=== PATIENT | male | born 1950 | race Caucasian/White ===

== ENCOUNTER 2021-06-01 07:35 | Day surgery (SDC) | payer MEDICARE, BC ==
[2021-05-30 10:32] VITALS: BMI 31.4
[~2021-06-01 07:35] MED LIST: LACTATED RINGERS 1,000 ML IV SCH
[2021-06-01 08:17] VITALS: TEMP 97.3
[2021-06-01] MEDS ORDERED: PROPOFOL 10 MG/ML 20 ML VIAL IV ONE (08:24)
[2021-06-01] MEDS ORDERED: LIDOCAINE 1% INJ 10MG/ML (20 ML MDV) ONE (08:24)
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
[2021-06-01 09:50] VITALS: RESP 16
--- NOTE | 2021-06-01 09:50 | P.PCN ---
Date of Procedure: 06/01/21 Preoperative Diagnosis: Screening Postoperative Diagnosis: Cecal polyp Multiple ascending colon polyps Hepatic flexure mass Procedure(s) Performed: Colonoscopy with hot snare polypectomy, hot snare biopsy, tattoo placement Anesthesia: MAC Surgeon: Ely Kaur Pathology: other (Cecal polyp, multiple ascending colon polyps, biopsy of hepatic flexure mass) Condition: stable Disposition: same day Indications for Procedure: 70-year-old male presents today for screening colonoscopy. Risks, benefits and alternatives were provided to the patient. He did provide consent prior to attending the endoscopy suite. Operative Findings: Large pedunculated hepatic flexure mass, multiple polyps of the cecum and ascending colon Description of Procedure: The patient was brought to the endoscopy suite and placed in left lateral decubitus position and adequate sedation was achieved using conscious sedation. A digital rectal exam was performed and mild internal hemorrhoids were palpated. An endoscope was then placed in the rectum and advanced to the cecum as identified by landmarks including the appendiceal orifice and the ileocecal valve. The prep was good. The colonoscope was then slowly withdrawn, examining for any mucosal abnormalities. The cecum, ascending, transverse, descending and sigmoid colon were visualized adequately. Multiple moderate-sized polyps were noted in the cecum and ascending colon. These were removed with hot snare po lypectomy. A large pedunculated mass was noted at the hepatic flexure. Multiple snare biopsies were taken of this mass and it was unresectable under endoscopy. Area around this mass was tattooed. An additional polyp was noted in the sigmoid colon and this was removed with hot snare polypectomy. Sigmoid colon also showed evidence of moderate diverticulosis. Retroflexion was performed in the rectum and internal hemorrhoids were visible. Excess air was removed, the colonoscope withdrawn and the procedure terminated. The patient was then transferred to the recovery unit in stable condition. Repeat colonoscopy should be performed based on surgical planning due to large hepatic flexure mass.
[2021-06-01 10:26] VITALS: BP 114/65; PULSE 65
== END 2021-06-01 11:05 | disposition home or self-care (01) ==
LOC: ORWHC2ENDO 07:35
PROVIDERS: ATTEND Surgery
DX: Z12.11 Encounter for screening for malignant neoplasm of colon (principal); D12.0 Benign neoplasm of cecum; D12.2 Benign neoplasm of ascending colon; D12.3 Benign neoplasm of transverse colon; D12.4 Benign neoplasm of descending colon; D12.5 Benign neoplasm of sigmoid colon; E78.5 Hyperlipidemia, unspecified; I10 Essential (primary) hypertension; H35.30 Unspecified macular degeneration
CPT/HCPCS: 45385; 45381; 88305; J2001; J2704

== ENCOUNTER 2021-08-10 09:30 | Inpatient (IN) | payer MEDICARE, BC ==
[2021-08-27 11:03] VITALS: BMI 31.8
[2021-08-30] MEDS ORDERED: HEPARIN SODIUM,PORCINE/PF 5,000 UNIT/0.5 ML SYRINGE SQ PRN (05:00)
[2021-08-30] MEDS ORDERED: metroNIDAZOLE-NS PMX 500 MG in SALINE 1 100ML.BAG IVPB PRN (05:00)
[2021-08-30] MEDS ORDERED: HYDROmorphone 0.5 MG/0.5 ML SYRINGE IVP PRN (07:40)
[2021-08-30] MEDS ORDERED: DEXAMETHASONE SOD PHOSPHATE 4 MG/ML 1 ML VIAL IV ONE (07:40)
[2021-08-30] MEDS ORDERED: LIDOCAINE 1% (10MG/ML) FOR IV START INTRADERMA PRN (07:40)
[2021-08-30] MEDS ORDERED: ONDANSETRON 4 MG/2 ML VIAL IVP ONE (07:40)
[2021-08-30] MEDS ORDERED: ONDANSETRON 4 MG/2 ML VIAL IVP PRN ×2 (07:40→13:48)
[2021-08-30] MEDS: LACTATED RINGERS 1,000 ML IV SCH (12:45)
[2021-08-30 13:13] LABS: INR 0.9 (<1.2); Partial Thromboplastin Time 23.3 sec (22.0-30.0); Prothrombin Time 10.2 sec (9.0-12.0)
[2021-08-30] MEDS ORDERED: MIDAZOLAM 2 MG/2 ML VIAL IVP ONE (13:28)
[2021-08-30] MEDS ORDERED: fentaNYL (PF) 50 MCG/ML 5 ML AMP IVP ONE (13:28)
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
[2021-08-30] MEDS ORDERED: NALOXONE 0.4 MG/ML 1 ML VIAL IV PRN (13:48)
[2021-08-30] MEDS ORDERED: NALBUPHINE 10 MG/ML (1 ML AMP) IV PRN (13:48)
[2021-08-30] MEDS ORDERED: MORPHINE SULFATE 2 MG/ML SYRINGE IVP PRN (13:48)
[2021-08-30] MEDS ORDERED: SUCCINYLCHOLINE CHLORIDE VIAL 200 MG/10 ML VIAL IV ONE (13:51)
[2021-08-30] MEDS ORDERED: GLYCOPYRROLATE 0.2 MG/ML 2 ML VIAL ONE (13:51)
[2021-08-30] MEDS ORDERED: HEPARIN SODIUM,PORCINE 5,000 UNIT/ML 1 ML VIAL ONE (13:51)
[2021-08-30] MEDS ORDERED: fentaNYL (PF) 50 MCG/ML 2 ML AMP ONE (13:51)
[2021-08-30] MEDS ORDERED: ROCURONIUM 10 MG/ML (5 ML VIAL) IV ONE (13:51)
[2021-08-30] MEDS ORDERED: NEOSTIGMINE 1 MG/ML 10 ML VIAL ONE (13:51)
[2021-08-30] MEDS ORDERED: LIDOCAINE 1% INJ 10MG/ML (20 ML MDV) ONE (13:51)
[2021-08-30] MEDS ORDERED: PROPOFOL 10 MG/ML 20 ML VIAL IV ONE (13:51)
--- NOTE | 2021-08-30 13:56 | P.ANPRN ---
Procedure Note - Anesthesia - Epidural/Spinal Epidural Continuous Time Out Performed: Yes Date of Procedure: 08/30/21 Procedure Start Time: 13:28 Procedure Stop Time: 13:39 Location of Patient: PreOp Indication: Acute Post-Operative Pain, Requested by Surgeon (anne marie) Sedation Type: Sedate with meaningful contact maintained Preparation: Sterile Dressing Number of Attempts: 2 Position: Sitting Catheter Depth at Skin (cm): 13 Catheter: Indwelling Needle Guage: 18 Injectate: Test Dose Lidocaine1.5% w/1:200,000 epi (negative) Blood Aspirated: No Pain Paresthesia on Injection Noted: No Events: Uneventful and Well Tolerated
[2021-08-30] MEDS ORDERED: LACTATED RINGERS 1,000 ML IV ONE ×4 (14:00→17:31)
[2021-08-30] MEDS ORDERED: ROPIVACAINE 250 MG, HYDROMORPHONE (PF) 5 MG in SODIUM CHLORIDE 0.9% 200 ML EPIDURAL PRN (14:05)
[2021-08-30] MEDS ORDERED: BUPIVACAIN-EPI 0.25%-1:200,000 30 ML VIAL SQ ONE ×2 (14:16)
[2021-08-30] MEDS ORDERED: HYDROmorphone 1 MG/ML 1 ML SYRINGE IVP PRN (16:05)
--- NOTE | 2021-08-30 16:21 | P.OP ---
Date of Procedure: 08/30/21 Preoperative Diagnosis: Colon polypoid lesion, low-grade dysplasia Postoperative Diagnosis: Colon polypoid lesion, low-grade dysplasia Procedure(s) Performed: Open right hemicolectomy Anesthesia: MIGUELANGEL Surgeon: Ely Kaur Pathology: other (Right colon) Condition: stable Disposition: floor Indications for Procedure: 70-year-old male recently underwent colonoscopy for screening purposes. On colonoscopy, large polypoid lesion was noted at the hepatic flexure. Multiple snare attempts were attempted and this was partially removed piecemeal. Pathology did reveal low-grade dysplasia with inability to rule out high-grade dysplasia or malignancy. Initially, recommendation was made for the patient to undergo EMR with advanced [facility] and tertiary care facility. Patient stated he did not want to leave town for medical care. Recommendation was then made for colectomy. Risks, benefits and alternatives were provided to the patient. He did provide consent prior to attending the operating suite. Operative Findings: Visible tattoo of the hepatic flexure Description of Procedure: Patient was brought to the operating suite and placed supine on the operating table. Sedation was provided by anesthesia patient underwent endotracheal intubation. Prior to surgery, epidural was placed for postoperative pain control. Patient was then prepped and draped in regular sterile fashion. Initially, attempt was made to perform the procedure under laparoscopic or robotic minimally invasive approach. A 5 mm incision was made below the umbilicus and the abdomen was entered under direct visualization using a 5 mm Visiport. Pneumoperitoneum was achieved. On exam, tattoo was not clearly visible. Additional 5 mm trocar was placed and a grasper was used to manipulate the omentum to further evaluate for tattoo location. Tattoo was clearly not visualized. At this point, it was decided to continue the case in an open procedure. Vertical midline incision was made and dissection was carried to the fascia. The fascia was incised along the length of the incision. Exam of the colon was performed beginning at the cecum. The colon was followed distally towards the hepatic flexure. The colon was noted to be densely adhered to the abdominal wall in the right upper quadrant. Dissection was carried to dissect the colon from its adhesions to the right upper quadrant abdominal wall. After performing this maneuver, tattoo was then clearly visualized. Bookwalter retractor was placed and the small bowel was reduced into the left portion of the abdomen with towels. The colon was medialized and dissection was carried along the white line of Toldt to free the right colon from the peritoneal reflection. On release from the peritoneal reflection, the third portion the duodenum was visualized. The ureter was also visualized and was avoided during the entire procedure. Point of transection was decided upon the distal ileum and approximately 5 cm distal to the tattoo at the hepatic flexure. Windows were created in the mesentery and both of these ends were transected using a 75 TAMAR stapler device. Enseal device was used to dissect the colon from the mesentery and remove the portion of the specimen completely. Hemostasis was noted to be maintained. Copious muss irrigation was then placed and hemostasis was continued to be maintained. At this point, anastomosis was created as a side to side, functional end to end anastomosis. A enterotomy and colotomy were created and a 75 mm TAMAR stapler was placed to create the anastomosis. Resulting enterotomy was then closed with TX 60 loaded stapler. The staple line from the TX load was then imbricated using multiple 3-0 Vicryl sutures. At this point, further irrigation was performed. A tension reducing stitch was placed at the base of the anastomosis staple line as well. At this point, the omentum was then placed back into position and small bowel was released. Bookwalter and retractors were removed. The wound was then closed using a running looped PDS suture. Skin was closed with skin staple. Sterile dressing was applied. The patient was awakened in the operating suite and taken to post anesthesia care unit in stable condition.
[2021-08-30] MEDS ORDERED: HYDROcodone/APAP 5-325MG 1 EACH TAB PO PRN (16:22)
[2021-08-30] MEDS: ALVIMOPAN 12 MG CAPSULE PO SCH (21:44)
[2021-08-30] MEDS: ATORVASTATIN 20 MG TAB PO SCH (21:44)
[2021-08-30] MEDS: HEPARIN SODIUM,PORCINE/PF 5,000 UNIT/0.5 ML SYRINGE SQ SCH (23:27)
[2021-08-31 05:45] LABS: Basophils % (A) 0 %; Eosinophils % (A) 0 %; HCT 40.3 % (39.0-53.0); HGB 13.4 gm/dL (13.0-17.5); Lymphocytes % (A) 7 %; MCH 31.9 pg (25.0-35.0); MCHC 33.4 g/dL (31.0-37.0); MCV 95.7 fL (80.0-100.0); Mean Platelet Volume 7.9; Monocytes # (A) 1.1 k/uL (0-1.0); Monocytes % (A) 8 %; Neutrophils # (A) 11.4 k/uL (1.3-7.7); Neutrophils % (A) 83 %; Platelet Count 231 k/uL (150-450); RBC 4.21 m/uL (4.30-5.90); RDW 12.5 % (11.5-15.5); WBC 13.7 k/uL (3.8-10.6)
--- NOTE | 2021-08-31 07:51 | P.PN ---
Progress Note - Text 08/31/21 754am 70-year-old male status post hemicolectomy by Dr. Kaur. Patient has an epidural catheter for postop pain control with the solution running at 8 mL an hour with a VAS of 3. Patient has no motor or sensory deficit, dressing clean dry and intact. Plan to continue epidural infusion
[2021-08-31] MEDS: FUROSEMIDE 20 MG TAB PO SCH (09:15)
[2021-08-31] MEDS: PANTOPRAZOLE 40 MG TABLET PO SCH (09:15)
[2021-08-31] MEDS: ALVIMOPAN 12 MG CAPSULE PO SCH ×2 (09:15→20:35)
[2021-08-31] MEDS: lisinopriL 10 MG TAB PO SCH (09:16)
[2021-08-31] MEDS: amLODIPine 5 MG TAB PO SCH (09:16)
[2021-08-31] MEDS: HEPARIN SODIUM,PORCINE/PF 5,000 UNIT/0.5 ML SYRINGE SQ SCH ×3 (09:16→20:35)
[2021-08-31 10:27] LABS: African American GFR (CKD) 119.7 (60.0-200.0); BUN/Creat Ratio 27.33 Ratio (12.00-20.00); Blood Urea Nitrogen 16.4 mg/dL (9.0-27.0); Calcium 8.4 mg/dL (8.7-10.3); Non-African American GFR(CKD) 103.3 (60.0-200.0); Potassium 4.5 mmol/L (3.5-5.5)
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
--- NOTE | 2021-08-31 14:06 | P.PN ---
Subjective Progress Note Date: 08/31/21 Patient seen and examined at bedside. States he is having no pain with epidural in place. Fabian catheter remains in place with concentrated urine. Denies flatus. Tolerating clear liquid diet. Denies nausea or vomiting. Objective - Vital Signs Vital signs: Vital Signs Temp 98.3 F 08/31/21 05:06 Pulse 83 08/31/21 09:21 Resp 18 08/31/21 05:06 BP 118/64 08/31/21 09:16 Pulse Ox 97 08/31/21 09:21 Intake & Output 08/30/21 08/31/21 08/31/21 18:59 06:59 18:59 Intake Total 2750 120 Output Total 101 Balance 2649 120 Weight 112.7 kg Intake: IV 2750 Oral 120 Output: Urine 100 Estimated Blood Loss 1 Other: Voiding Method Indwelling Catheter # Voids 3 - Constitutional General appearance: Present: cooperative, no acute distress - Gastrointestinal Gastrointestinal Comment(s): Soft, nontender, nondistended, no rebound, no guarding, midline incision with surgical dressing in place. - Psychiatric Psychiatric: Present: A&O x's 3 - Labs CBC & Chem 7: 08/31/21 05:08 08/31/21 05:08 Labs: Abnormal Lab Results - Last 24 Hours (Table) 08/31/21 08/31/21 Range/Units 05:08 05:08 WBC 13.7 H (3.8-10.6) k/uL RBC 4.21 L (4.30-5.90) m/uL Neutrophils # 11.4 H (1.3-7.7) k/uL Monocytes # 1.1 H (0-1.0) k/uL Carbon Dioxide 19.0 L (20.0-27.5) mmol/L BUN/Creatinine Ratio 27.33 H (12.00-20.00) Ratio Calcium 8.4 L (8.7-10.3) mg/dL Assessment and Plan Plan: Postoperative day #1, right hemicolectomy Patient is doing well and pain is well controlled with epidural Continue incentive spirometry Continue Fabian catheter while epidural is in place Continue clear liquid diet and await further bowel function Increase activity Continue IV fluid resuscitation Appreciate medical recommendations
[2021-08-31] MEDS: LACTATED RINGERS 1,000 ML IV SCH ×4 (14:32→20:39)
[2021-08-31] MEDS: ATORVASTATIN 20 MG TAB PO SCH (20:35)
[2021-08-31] MEDS: diphenhydrAMINE 50 MG/ML 1 ML VIAL IVP PRN (20:35)
[2021-09-01] MEDS: diphenhydrAMINE 50 MG/ML 1 ML VIAL IVP PRN (06:19)
[2021-09-01 06:27] LABS: Basophils % (A) 0 %; Eosinophils % (A) 0 %; HCT 38.8 % (39.0-53.0); Lymphocytes # (A) 1.6 k/uL (1.0-4.8); Lymphocytes % (A) 14 %; MCH 31.9 pg (25.0-35.0); MCHC 33.6 g/dL (31.0-37.0); Mean Platelet Volume 7.5; Monocytes # (A) 0.7 k/uL (0-1.0); Monocytes % (A) 6 %; Neutrophils # (A) 8.5 k/uL (1.3-7.7); Neutrophils % (A) 78 %; Platelet Count 216 k/uL (150-450); RBC 4.09 m/uL (4.30-5.90); RDW 12.5 % (11.5-15.5)
[2021-09-01] MEDS ORDERED: HYDROmorphone 1 MG/ML 1 ML SYRINGE IVP PRN (09:17)
[2021-09-01] MEDS: LACTATED RINGERS 1,000 ML IV SCH ×3 (09:18→22:42)
[2021-09-01] MEDS: lisinopriL 10 MG TAB PO SCH (09:20)
[2021-09-01] MEDS: amLODIPine 5 MG TAB PO SCH (09:20)
[2021-09-01] MEDS: FUROSEMIDE 20 MG TAB PO SCH (09:20)
[2021-09-01] MEDS: PANTOPRAZOLE 40 MG TABLET PO SCH (09:20)
[2021-09-01] MEDS: ALVIMOPAN 12 MG CAPSULE PO SCH ×2 (09:21→20:49)
[2021-09-01] MEDS: HEPARIN SODIUM,PORCINE/PF 5,000 UNIT/0.5 ML SYRINGE SQ SCH ×3 (09:21→20:51)
--- NOTE | 2021-09-01 09:23 | P.PN ---
Subjective Progress Note Date: 09/01/21 Patient seen and examined at bedside. Overnight, patient did pull out his epidural and states he was feeling claustrophobic. He states that his pain level has certainly increased after epidural is removed. He also complains of some hiccups today. He denies any flatus or bowel movement. Tolerating clear liquid diet. Denying any nausea or vomiting at this time. Objective - Vital Signs Vital signs: Vital Signs Temp 99.2 F 09/01/21 05:00 Pulse 93 09/01/21 05:00 Resp 20 09/01/21 05:00 BP 134/72 09/01/21 05:00 Pulse Ox 93 L 09/01/21 05:00 Intake & Output 08/31/21 09/01/21 09/01/21 18:59 06:59 18:59 Intake Total 900 740 Output Total 800 Balance 900 -60 Intake: Intake, IV Titration 240 Amount Lactated Ringers 1,000 ml 240 @ 125 mls/hr IV .Q8H [facility] Rx#:[id number] Oral 900 500 Output: Urine 800 Uretheral (Fabian) 800 Other: Voiding Method Indwelling Catheter # Voids 2 - Constitutional General appearance: Present: cooperative, no acute distress - Respiratory Details: No difficulty with respiration - Gastrointestinal Gastrointestinal Comment(s): Soft, appropriate tenderness around the incision, nondistended, no rebound, no guarding, midline incision site with surgical dressing in place - Musculoskeletal Musculoskeletal: Present: generalized weakness - Psychiatric Psychiatric: Present: A&O x's 3 - Labs CBC & Chem 7: 09/01/21 05:44 08/31/21 05:08 Labs: Abnormal Lab Results - Last 24 Hours (Table) 08/31/21 09/01/21 Range/Units 05:08 05:44 WBC 11.0 H (3.8-10.6) k/uL RBC 4.09 L (4.30-5.90) m/uL Hct 38.8 L (39.0-53.0) % Neutrophils # 8.5 H (1.3-7.7) k/uL Carbon Dioxide 19.0 L (20.0-27.5) mmol/L BUN/Creatinine Ratio 27.33 H (12.00-20.00) Ratio Calcium 8.4 L (8.7-10.3) mg/dL Assessment and Plan Plan: Postoperative day #2, right hemicolectomy Epidural removed by patient overnight. We will transition to IV and oral pain meds with Dilaudid, [place], Toradol. Continue incentive spirometry Foey catheter was removed by nursing overnight after epidural was removed. Continue clear liquid diet and await further bowel function Increase activity Continue IV fluid resuscitation. On exam today, IV fluids are running well be low the ordered value. This was discussed with nursing staff to increase IV fluids. Appreciate medical recommendations
[2021-09-01 09:29] LABS: African American GFR (CKD) 115.9 (60.0-200.0); Anion Gap 11.6 mmol/L (10.00-18.00); BUN/Creat Ratio 27.12 Ratio (12.00-20.00); Blood Urea Nitrogen 17.6 mg/dL (9.0-27.0); Calcium 8.3 mg/dL (8.7-10.3); Carbon Dioxide 22.4 mmol/L (20.0-27.5); Potassium 3.9 mmol/L (3.5-5.5)
[2021-09-01] MEDS ORDERED: KETOROLAC 15 MG/ML 1 ML VIAL IVP SCH (09:30)
[2021-09-01] MEDS: KETOROLAC 30 MG/ML 1 ML VIAL IVP SCH ×3 (09:35→20:49)
[2021-09-01] MEDS: ATORVASTATIN 20 MG TAB PO SCH (20:49)
[2021-09-01] MEDS: TAMSULOSIN 0.4 MG CAP.ER.24H PO SCH (20:49)
[2021-09-01] MEDS: ONDANSETRON 4 MG/2 ML VIAL IVP PRN (20:51)
--- NOTE | 2021-09-01 21:10 | P.PN ---
Subjective This is a 70-year-old gentleman status post elective right hemicolectomy secondary to large polyp/mass discovered in screening colonoscopy a few months ago. 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 He was admitted this time and underwent open right hemicolectomy on 08/30. Today he is fully awake and oriented, he still reports abdominal pain 06/01 at times, he is a still on liquid diet with no bowel movement or passing gas. Today his epidural anesthetic and Fabian catheter were discontinued. However bladder scan showing urinary retention more than 350 and patient is not being despite being on Ringer lactate at 1 25 mL/h. Flomax added and straight cath and possible Fabian catheter will be inserted, staff, followed him closely. Left showing mild leukocytosis 11. Dilaudid and Toradol added today as well for better pain control colon Biopsy still pending Objective - Vital Signs Vital signs: Vital Signs Temp 98.4 F 09/01/21 12:43 Pulse 87 09/01/21 12:43 Resp 18 09/01/21 12:43 BP 125/63 09/01/21 12:43 Pulse Ox 93 L 09/01/21 12:43 Intake & Output 09/01/21 09/01/21 09/02/21 06:59 18:59 06:59 Intake Total 740 1500 Output Total 800 700 Balance -60 800 Intake: Intake, IV Titration 240 1500 Amount Lactated Ringers 1,000 ml 240 1500 @ 125 mls/hr IV .Q8H [facility] Rx#:[id number] Oral 500 Output: Urine 800 700 Straight 350 Uretheral (Fabian) 800 Other: Voiding Method Indwelling Catheter # Voids 2 - Exam GENERAL: The patient is alert and oriented x3, not in any acute distress. Well developed, well nourished. HEENT: Pupils are round and equally reacting to light. EOMI. No scleral icterus. No conjunctival pallor. Normocephalic, atraumatic. No pharyngeal erythema. No thyromegaly. CARDIOVASCULAR: S1 and S2 present. No murmurs, rubs, or gallops. PULMONARY: Chest is clear to auscultation, no wheezing or crackles. -ABDOMEN: Soft, tender at surgical site, nondistended, normoactive bowel sounds. No palpable organomegaly. Surgical wound is closed, dressing in place MUSCULOSKELETAL: No joint swelling or deformity. EXTREMITIES: No cyanosis, clubbing, or pedal edema. NEUROLOGICAL: Gross neurological examination did not reveal any focal deficits. SKIN: No rashes. no petechiae. - Labs CBC & Chem 7: 09/01/21 05:44 09/01/21 05:44 Labs: Abnormal Lab Results - Last 24 Hours (Table) 09/01/21 09/01/21 Range/Units 05:44 05:44 WBC 11.0 H (3.8-10.6) k/uL RBC 4.09 L (4.30-5.90) m/uL Hct 38.8 L (39.0-53.0) % Neutrophils # 8.5 H (1.3-7.7) k/uL Sodium 132 L (135-145) mmol/L BUN/Creatinine Ratio 27.12 H (12.00-20.00) Ratio Calcium 8.3 L (8.7-10.3) mg/dL Assessment and Plan Assessment: Colonoscopy status post right hemicolectomy, colon biopsy still pending Urinary retention Hypertension Hyperlipidemia History of nicotine dependence till 6 weeks ago Plan: This is a pleasant 70 years old male status post right hemicolectomy for his colonic mass. Continue with IV fluid and pain management Follow-up colonic Biopsy Continue with the bladder scan, insert Fabian catheter versus straight cath if retention And Flomax Labs and medication were reviewed.. Continue same treatment. Continue with symptomatic treatment. Resume home medication. Monitor lytes and vitals. DVT and GI prophylaxis. Further recommendationsas per clinical course of the patient DVT prophylaxis: Subcutaneous heparin GI Prophylaxis: Ppi
[2021-09-02] MEDS: ONDANSETRON 4 MG/2 ML VIAL IVP PRN ×2 (03:06→11:42)
[2021-09-02] MEDS: KETOROLAC 30 MG/ML 1 ML VIAL IVP SCH ×4 (03:07→21:24)
[2021-09-02 04:06] LABS: Basophils % (A) 0 %; Eosinophils # (A) 0.1 k/uL (0-0.7); Eosinophils % (A) 0 %; HCT 37.2 % (39.0-53.0); Lymphocytes # (A) 0.8 k/uL (1.0-4.8); Lymphocytes % (A) 7 %; MCH 32.9 pg (25.0-35.0); MCV 93.8 fL (80.0-100.0); Mean Platelet Volume 7.8; Monocytes # (A) 0.7 k/uL (0-1.0); Monocytes % (A) 6 %; Neutrophils # (A) 9.3 k/uL (1.3-7.7); Neutrophils % (A) 85 %; Platelet Count 200 k/uL (150-450); RBC 3.96 m/uL (4.30-5.90); RDW 12.3 % (11.5-15.5)
[2021-09-02] MEDS: LACTATED RINGERS 1,000 ML IV SCH ×2 (06:00→14:37)
[2021-09-02] MEDS ORDERED: METOCLOPRAMIDE 5 MG/ML 2 ML VIAL IVP STA (06:56)
[2021-09-02] MEDS: PANTOPRAZOLE 40 MG TABLET PO SCH (09:15)
[2021-09-02] MEDS: HEPARIN SODIUM,PORCINE/PF 5,000 UNIT/0.5 ML SYRINGE SQ SCH ×2 (09:15→15:59)
[2021-09-02] MEDS: amLODIPine 5 MG TAB PO SCH (09:16)
[2021-09-02] MEDS: FUROSEMIDE 20 MG TAB PO SCH (09:16)
[2021-09-02] MEDS: ALVIMOPAN 12 MG CAPSULE PO SCH (09:16)
[2021-09-02] MEDS: lisinopriL 10 MG TAB PO SCH (09:16)
[2021-09-02 10:45] LABS: African American GFR (CKD) 115.9 (60.0-200.0); Albumin 3.4 g/dL (3.8-4.9); Albumin/Globulin Ratio 2.03 (1.60-3.17); Anion Gap 11.3 mmol/L (10.00-18.00); BUN/Creat Ratio 19.11 Ratio (12.00-20.00); Blood Urea Nitrogen 12.4 mg/dL (9.0-27.0); Calcium 8.2 mg/dL (8.7-10.3); Carbon Dioxide 22.7 mmol/L (20.0-27.5); Globulin 1.7 g/dL (1.6-3.3); Potassium 3.8 mmol/L (3.5-5.5); Total Bilirubin 0.9 mg/dL (0.30-1.20); Total Protein 5.1 g/dL (6.2-8.2)
[2021-09-02] MEDS: METOCLOPRAMIDE 5 MG/ML 2 ML VIAL IVP SCH ×2 (14:29→21:25)
--- NOTE | 2021-09-02 15:38 | P.PN ---
Subjective Progress Note Date: 09/02/21 Patient seen 2 times on rounds today, once earlier this morning and once within the last hour. Overnight, patient had multiple small episodes of emesis and then one larger bilious emesis. He stated this morning that he had a couple of episodes of flatus. At that time, I did recommend that patient begin ambulating and vomiting episodes is likely secondary to some ileus episodes. He was kept nothing by mouth for most of the day. On my second exam, patient states that he had a few small formed bowel movements. He states he also had additional flatus episodes. He denies being able to urinate on his own since the Fabian catheter was removed yesterday. He has required two straight catheterizations. He does admit to on and off episodes of nausea. Significant amount of time was spent with the patient to explain the importance of ambulating, however he refuses to do so with nursing. Objective - Vital Signs Vital signs: Vital Signs Temp 98.2 F 09/02/21 12:39 Pulse 102 H 09/02/21 12:39 Resp 19 09/02/21 12:39 BP 146/74 09/02/21 12:39 Pulse Ox 91 L 09/02/21 12:39 Intake & Output 09/01/21 09/02/21 09/02/21 18:59 06:59 18:59 Intake Total 1500 1700 Output Total 700 650 Balance 800 1050 Intake: Intake, IV Titration 1500 1500 Amount Lactated Ringers 1,000 ml 1500 1500 @ 125 mls/hr IV .Q8H [facility] Rx#:[id number] Oral 200 Output: Urine 700 350 Straight 350 Emesis 300 Other: # Bowel Movements 1 - Constitutional General appearance: Present: no acute distress - Gastrointestinal Gastrointestinal Comment(s): Soft, nontender, mild distention, no rebound, no guarding, midline incision clean, dry and intact with surgical dressing in place - Psychiatric Psychiatric: Present: A&O x's 3 - Labs CBC & Chem 7: 09/02/21 03:53 09/02/21 03:53 Labs: Abnormal Lab Results - Last 24 Hours (Table) 09/02/21 09/02/21 Range/Units 03:53 03:53 WBC 11.0 H (3.8-10.6) k/uL RBC 3.96 L (4.30-5.90) m/uL Hct 37.2 L (39.0-53.0) % Neutrophils # 9.3 H (1.3-7.7) k/uL Lymphocytes # 0.8 L (1.0-4.8) k/uL Sodium 130 L (135-145) mmol/L Glucose 126 H (70-110) mg/dL Calcium 8.2 L (8.7-10.3) mg/dL Total Protein 5.1 L (6.2-8.2) g/dL Albumin 3.4 L (3.8-4.9) g/dL Assessment and Plan Plan: Postoperative day #3, right hemicolectomy Continue with IV and oral pain meds with Dilaudid, [place], Toradol. Continue incentive spirometry Patient has required multiple straight catheterizations and inability to urinate on his own. We will replace Fabian catheter Patient has had flatus and small bowel movements, however has had some emesis episodes. We will keep the patient on ice chips at this time. We will treat nausea and emesis with Reglan and Zofran. Increase activity. This was discussed significantly with the patient to am bulate. Currently, patient is refusing to do so in the hallway. Continue IV fluids, hyponatremia is noted. IV fluids to be changed to normal saline Appreciate medical recommendations
[2021-09-02] MEDS ORDERED: HYDROmorphone 0.5 MG/0.5 ML SYRINGE IVP PRN (15:40)
[2021-09-02] MEDS: SODIUM CHLORIDE 0.9% 1,000 ML IV SCH ×2 (16:03→21:35)
--- NOTE | 2021-09-02 20:42 | P.PN ---
Subjective This is a 70-year-old gentleman status post elective right hemicolectomy secondary to large polyp/mass discovered in screening colonoscopy a few months ago. 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 He was admitted this time and underwent open right hemicolectomy on 08/30. Today he is fully awake and oriented, he still reports abdominal pain 9/10 at times, he is a still on liquid diet with no bowel movement or passing gas. Today his epidural anesthetic and Fabian catheter were discontinued. However bladder scan showing urinary retention more than 350 and patient is not being despite being on Ringer lactate at 1 25 mL/h. Flomax added and straight cath and possible Fabian catheter will be inserted, staff, followed him closely. Left showing mild leukocytosis 11. Dilaudid and Toradol added today as well for better pain control colon Biopsy still pending 09/02/2021 Patient was placed on liquid diet but he is not tolerating that well although he states that his abdominal pain feels better and is down to 5/10 and he had first bowel movement and stating that it is black. He is slightly tachycardic 102-112, sodium is 1:30, WBC is 11, he remains on normal saline at 125 acid of Ringer's lactate before surgery team. Surgeon are on the case and following him closely. Also Fabian catheter has to be replaced today after 2 episodes of straight cath for urinary retention. The patient is on Flomax. Urine analysis is ordered. Objective - Vital Signs Vital signs: Vital Signs Temp 98.5 F 09/02/21 05:30 Pulse 76 09/02/21 09:34 Resp 20 09/02/21 05:30 BP 138/79 09/02/21 09:34 Pulse Ox 100 09/02/21 05:30 Intake & Output 09/01/21 09/02/21 09/02/21 18:59 06:59 18:59 Intake Total 1500 1700 Output Total 700 650 Balance 800 1050 Intake: Intake, IV Titration 1500 1500 Amount Lactated Ringers 1,000 ml 1500 1500 @ 125 mls/hr IV .Q8H [facility] Rx#:[id number] Oral 200 Output: Urine 700 350 Straight 350 Emesis 300 Other: # Bowel Movements 1 - Exam GENERAL: The patient is alert and oriented x3, not in any acute distress. Well developed, well nourished. HEENT: Pupils are round and equally reacting to light. EOMI. No scleral icterus. No conjunctival pallor. Normocephalic, atraumatic. No pharyngeal erythema. No thyromegaly. CARDIOVASCULAR: S1 and S2 present. No murmurs, rubs, or gallops. PULMONARY: Chest is clear to auscultation, no wheezing or crackles. -ABDOMEN: Soft, tender at surgical site, nondistended, normoactive bowel sounds. No palpable organomegaly. Surgical wound is closed, dressing in place MUSCULOSKELETAL: No joint swelling or deformity. EXTREMITIES: No cyanosis, clubbing, or pedal edema. NEUROLOGICAL: Gross neurological examination did not reveal any focal deficits. SKIN: No rashes. no petechiae. - Labs CBC & Chem 7: 09/02/21 03:53 09/02/21 03:53 Labs: Abnormal Lab Results - Last 24 Hours (Table) 09/02/21 09/02/21 Range/Units 03:53 03:53 WBC 11.0 H (3.8-10.6) k/uL RBC 3.96 L (4.30-5.90) m/uL Hct 37.2 L (39.0-53.0) % Neutrophils # 9.3 H (1.3-7.7) k/uL Lymphocytes # 0.8 L (1.0-4.8) k/uL Sodium 130 L (135-145) mmol/L Glucose 126 H (70-110) mg/dL Calcium 8.2 L (8.7-10.3) mg/dL Total Protein 5.1 L (6.2-8.2) g/dL Albumin 3.4 L (3.8-4.9) g/dL Assessment and Plan Assessment: Colonoscopy status post right hemicolectomy, colon biopsy still pending Urinary retention Hypertension Hyperlipidemia History of nicotine dependence till 6 weeks ago Plan: This is a pleasant 70 years old male status post right hemicolectomy for his colonic mass. Continue with IV fluid and pain management Follow-up colonic Biopsy Fabian catheter was placed today for urinary retention And Flomax added. Follow- up urine analysis Repeat labs in the morning Labs and medication were reviewed.. Continue same treatment. Continue with symptomatic treatment. Resume home medication. Monitor lytes and vitals. DVT and GI prophylaxis. Further recommendations as per clinical course of the patient DVT prophylaxis: Subcutaneous heparin GI Prophylaxis: Ppi Dr. Marsh team will see the patient tomorrow
[2021-09-02 21:19] LABS: Appearance,Urine Cloudy (Clear); Bilirubin,Urine Negative (Negative); Blood,Urine Large (Negative); Color,Urine Yellow; Glucose,Urine (UA) Negative (Negative); Ketones,Urine 4+ (Negative); Leukocyte Esterase,Urine Small (Negative); Mucus,Urine Many /hpf; Nitrite,Urine Negative (Negative); Protein,Urine 1+ (Negative); RBC,Urine 52 /hpf (0-5); Specific Gravity,Urine 1.022 (1.001-1.035); Squamous Epithelial Cell,Urine <1 /hpf (0-4); Urobilinogen,Urine <2.0 mg/dL (<2.0); WBC,Urine 17 /hpf (0-5)
[2021-09-02] MEDS: ATORVASTATIN 20 MG TAB PO SCH (21:24)
[2021-09-02] MEDS: TAMSULOSIN 0.4 MG CAP.ER.24H PO SCH (21:24)
[2021-09-03] MEDS: HEPARIN SODIUM,PORCINE/PF 5,000 UNIT/0.5 ML SYRINGE SQ SCH ×4 (00:21→23:30)
[2021-09-03] MEDS: METOCLOPRAMIDE 5 MG/ML 2 ML VIAL IVP SCH ×5 (02:10→23:30)
[2021-09-03] MEDS: KETOROLAC 30 MG/ML 1 ML VIAL IVP SCH ×4 (03:09→21:04)
[2021-09-03] MEDS: ONDANSETRON 4 MG/2 ML VIAL IVP PRN (03:18)
[2021-09-03 07:02] LABS: Basophils % (A) 0 %; Eosinophils # (A) 0.1 k/uL (0-0.7); Eosinophils % (A) 1 %; HCT 36.9 % (39.0-53.0); HGB 12.2 gm/dL (13.0-17.5); Lymphocytes # (A) 1.3 k/uL (1.0-4.8); Lymphocytes % (A) 15 %; MCH 32.1 pg (25.0-35.0); MCHC 32.9 g/dL (31.0-37.0); MCV 97.4 fL (80.0-100.0); Mean Platelet Volume 7.5; Monocytes # (A) 0.7 k/uL (0-1.0); Monocytes % (A) 9 %; Neutrophils # (A) 6.3 k/uL (1.3-7.7); Neutrophils % (A) 73 %; Platelet Count 210 k/uL (150-450); RBC 3.79 m/uL (4.30-5.90); RDW 12.4 % (11.5-15.5); WBC 8.6 k/uL (3.8-10.6)
[2021-09-03] MEDS: lisinopriL 10 MG TAB PO SCH (08:02)
[2021-09-03] MEDS: PANTOPRAZOLE 40 MG TABLET PO SCH (08:02)
[2021-09-03] MEDS: amLODIPine 5 MG TAB PO SCH (08:02)
[2021-09-03] MEDS: FUROSEMIDE 20 MG TAB PO SCH (08:02)
[2021-09-03] MEDS: SODIUM CHLORIDE 0.9% 1,000 ML IV SCH ×3 (08:03→23:33)
[2021-09-03 09:05] LABS: African American GFR (CKD) 120.1 (60.0-200.0); Albumin 3.1 g/dL (3.8-4.9); Albumin/Globulin Ratio 1.85 (1.60-3.17); Anion Gap 11.4 mmol/L (10.00-18.00); BUN/Creat Ratio 20.81 Ratio (12.00-20.00); Blood Urea Nitrogen 12.4 mg/dL (9.0-27.0); Calcium 7.7 mg/dL (8.7-10.3); Carbon Dioxide 17.6 mmol/L (20.0-27.5); Globulin 1.7 g/dL (1.6-3.3); Non-African American GFR(CKD) 103.6 (60.0-200.0); Total Bilirubin 0.8 mg/dL (0.30-1.20); Total Protein 4.8 g/dL (6.2-8.2)
--- NOTE | 2021-09-03 09:24 | P.PN ---
Subjective Progress Note Date: 09/03/21 Patient seen and examined at bedside. Having multiple bowel movements. States abdominal pain is minimal. States nausea has improved. No emesis overnight. Fabian catheter was replaced yesterday as the patient was unable to void after previous Fabian catheter removal. Objective - Vital Signs Vital signs: Vital Signs Temp 98.1 F 09/03/21 05:00 Pulse 96 09/03/21 08:06 Resp 16 09/03/21 05:00 BP 151/77 09/03/21 08:06 Pulse Ox 93 L 09/03/21 08:06 Intake & Output 09/02/21 09/03/21 09/03/21 18:59 06:59 18:59 Output Total 350 350 Balance -350 -350 Output: Urine 350 350 Other: Voiding Method Indwelling Catheter # Voids 4 # Bowel Movements 1 - Constitutional General appearance: Present: cooperative, no acute distress - Respiratory Details: no difficulty with respiration - Gastrointestinal Gastrointestinal Comment(s): Soft, nontender, nondistended, midline incision clean, dry and intact - Psychiatric Psychiatric: Present: A&O x's 3 - Labs CBC & Chem 7: 09/03/21 05:33 09/03/21 05:33 Labs: Abnormal Lab Results - Last 24 Hours (Table) 09/02/21 09/02/21 09/03/21 Range/Units 03:53 21:03 05:33 RBC 3.79 L (4.30-5.90) m/uL Hgb 12.2 L (13.0-17.5) gm/dL Hct 36.9 L (39.0-53.0) % Sodium 130 L (135-145) mmol/L Carbon Dioxide (20.0-27.5) mmol/L BUN/Creatinine Ratio (12.00-20.00) Ratio Glucose 126 H (70-110) mg/dL Calcium 8.2 L (8.7-10.3) mg/dL Total Protein 5.1 L (6.2-8.2) g/dL Albumin 3.4 L (3.8-4.9) g/dL Urine Protein 1+ H (Negative) Urine Ketones 4+ H (Negative) Urine Blood Large H (Negative) Ur Leukocyte Esterase Small H (Negative) Urine RBC 52 H (0-5) /hpf Urine WBC 17 H (0-5) /hpf Urine Mucus Many H (None) /hpf 09/03/21 Range/Units 05:33 RBC (4.30-5.90) m/uL Hgb (13.0-17.5) gm/dL Hct (39.0-53.0) % Sodium (135-145) mmol/L Carbon Dioxide 17.6 L (20.0-27.5) mmol/L BUN/Creatinine Ratio 20.81 H (12.00-20.00) Ratio Glucose (70-110) mg/dL Calcium 7.7 L (8.7-10.3) mg/dL Total Protein 4.8 L (6.2-8.2) g/dL Albumin 3.1 L (3.8-4.9) g/dL Urine Protein (Negative) Urine Ketones (Negative) Urine Blood (Negative) Ur Leukocyte Esterase (Negative) Urine RBC (0-5) /hpf Urine WBC (0-5) /hpf Urine Mucus (None) /hpf Microbiology - Last 24 Hours (Table) 09/02/21 21:03 Urine Culture - Preliminary Urine,Voided Assessment and Plan Plan: Postoperative day #4, right hemicolectomy Continue with IV and oral pain meds with Dilaudid, [place], Toradol. Continue incentive spirometry Fabian catheter in place Patient has had multiple bowel movements. Nausea has resolved. We will begin patient on full liquid diet. I did recommend patient move slowly with diet. Increase activity. This was discussed significantly with the patient to ambulate. Currently, patient is refusing to do so in the hallway. Continue IV fluids Appreciate medical recommendations
[2021-09-03] MEDS: TAMSULOSIN 0.4 MG CAP.ER.24H PO SCH (21:04)
[2021-09-03] MEDS: ATORVASTATIN 20 MG TAB PO SCH (21:04)
[2021-09-04] MEDS: KETOROLAC 30 MG/ML 1 ML VIAL IVP SCH ×4 (03:44→21:15)
[2021-09-04] MEDS: METOCLOPRAMIDE 5 MG/ML 2 ML VIAL IVP SCH (05:50)
[2021-09-04] MEDS: HEPARIN SODIUM,PORCINE/PF 5,000 UNIT/0.5 ML SYRINGE SQ SCH ×2 (07:32→17:35)
[2021-09-04] MEDS: FUROSEMIDE 20 MG TAB PO SCH (07:33)
[2021-09-04] MEDS: lisinopriL 10 MG TAB PO SCH (07:33)
[2021-09-04] MEDS: SODIUM CHLORIDE 0.9% 1,000 ML IV SCH ×2 (07:33→17:35)
[2021-09-04] MEDS: PANTOPRAZOLE 40 MG TABLET PO SCH (07:33)
[2021-09-04] MEDS: amLODIPine 5 MG TAB PO SCH (07:33)
[2021-09-04] MEDS: NYSTATIN 100,000 UNIT/ML SUSP 500,000 UNIT/5 ML CUP PO SCH ×4 (08:20→21:16)
[2021-09-04] MEDS: FLUCONAZOLE 150 MG TAB PO SCH (08:20)
--- NOTE | 2021-09-04 11:27 | P.PN ---
Subjective Progress Note Date: 09/03/21 This is a 70-year-old gentleman status post elective right hemicolectomy secondary to large polyp/mass discovered in screening colonoscopy a few months ago. 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 Tolerated procedure well. States no pain with epidural. Tolerating clear liquid diet with no nausea or vomiting. Passing flatus. He reports he quit smoking 6 weeks ago. Afebrile, WBC 13.7, hemoglobin 13.4, platelets 231. Electrolytes within normal limits, renal function stable. Maintaining O2 sats in the 90s on 3 L nasal cannula. Denies chest pain, palpitations or shortness of breath. 09/03/2021 patient reports had a rough weekend with nausea and vomiting which has subsided. tolerating full liquid diet. Pain controlled. Sodium within normal limits. Denies chest pain, palpitations or shortness of breath. Maintaining O2 sats in the 90s on room air .Afebrile, normal WBC. Objective - Vital Signs Vital signs: Vital Signs Temp 98.1 F 09/03/21 05:00 Pulse 96 09/03/21 08:06 Resp 16 09/03/21 05:00 BP 151/77 09/03/21 08:06 Pulse Ox 93 L 09/03/21 08:06 Intake & Output 09/02/21 09/03/21 09/03/21 18:59 06:59 18:59 Output Total 350 350 Balance -350 -350 Output: Urine 350 350 Other: Voiding Method Indwelling Catheter # Voids 4 # Bowel Movements 1 - Exam PHYSICAL EXAM: VITAL SIGNS: [As above GENERAL: Alert and oriented 3, sitting up in bed, no acute distress HEENT: Conjunctivae normal. eyes normal. Oral mucosa moist NECK: No JVD. No thyroid enlargement. No LNs CARDIOVASCULAR: S1, S2 regular. No murmur RESPIRATION: Breath sounds diminished in the bases. No rhonchi or crackles. ABDOMEN: Soft, status post surgery, midline dressing clean dry and intact, No guarding. Bowel sounds heard. LEGS: No edema. no swelling NERVOUS SYSTEM: Cranial N 2-12 grossly normal.No focal deficits.Strength and sensation grossly intact. Skin: Warm and dry, no rash - Labs CBC & Chem 7: 09/03/21 05:33 09/03/21 05:33 Labs: Abnormal Lab Results - Last 24 Hours (Table) 09/02/21 09/02/21 09/03/21 Range/Units 03:53 21:03 05:33 RBC 3.79 L (4.30-5.90) m/uL Hgb 12.2 L (13.0-17.5) gm/dL Hct 36.9 L (39.0-53.0) % Sodium 130 L (135-145) mmol/L Carbon Dioxide (20.0-27.5) mmol/L BUN/Creatinine Ratio (12.00-20.00) Ratio Glucose 126 H (70-110) mg/dL Calcium 8.2 L (8.7-10.3) mg/dL Total Protein 5.1 L (6.2-8.2) g/dL Albumin 3.4 L (3.8-4.9) g/dL Urine Protein 1+ H (Negative) Urine Ketones 4+ H (Negative) Urine Blood Large H (Negative) Ur Leukocyte Esterase Small H (Negative) Urine RBC 52 H (0-5) /hpf Urine WBC 17 H (0-5) /hpf Urine Mucus Many H (None) /hpf 09/03/21 Range/Units 05:33 RBC (4.30-5.90) m/uL Hgb (13.0-17.5) gm/dL Hct (39.0-53.0) % Sodium (135-145) mmol/L Carbon Dioxide 17.6 L (20.0-27.5) mmol/L BUN/Creatinine Ratio 20.81 H (12.00-20.00) Ratio Glucose (70-110) mg/dL Calcium 7.7 L (8.7-10.3) mg/dL Total Protein 4.8 L (6.2-8.2) g/dL Albumin 3.1 L (3.8-4.9) g/dL Urine Protein (Negative) Urine Ketones (Negative) Urine Blood (Negative) Ur Leukocyte Esterase (Negative) Urine RBC (0-5) /hpf Urine WBC (0-5) /hpf Urine Mucus (None) /hpf Microbiology - Last 24 Hours (Table) 09/02/21 21:03 Urine Culture - Preliminary Urine,Voided Assessment and Plan Assessment: Large polyp/mass at the hepatic flexure discovered on screening colonoscopy with concerns for dysplasia, status post open right hemicolectomy, reporting: Polypoid lesion, low grade dysplasia. Acute postop hypoxic respiratory failure, expected outcome Atelectasis Hypertension, history of Hyperlipidemia Former nicotine dependence, quit 6 weeks ago Plan: Continue current medication regime ,monitoring and symptomatic treatment. Diet advancement as per primary/surgery. Discontinue Fabian, ensure patient able to spontaneously void/post void residuals. Increase ambulation as tolerated. Continue aggressive pulmonary, toileting with incentive spirometer reinforced. Discharge planning possibly tomorrow pending surgeries clearance. The impression and plan of care has been dictated as directed. : I performed a history and examination of this patient, discussed the same with the dictator. I agree with the dictator's note ,documented as a scribe. Any additional findings or plans will be noted.
--- NOTE | 2021-09-04 13:02 | P.PN ---
Subjective Progress Note Date: 09/04/21 Patient seen and examined at bedside. Eights, overall he is doing well. Patient was seen by primary service and started on Diflucan secondary to concern for thrush causing nausea. Patient states that he is feeling well and denies any abdominal pain. Continues to have bowel movements. Asking for more diet. Objective - Vital Signs Vital signs: Vital Signs Temp 97.7 F 09/04/21 05:00 Pulse 116 H 09/04/21 05:00 Resp 16 09/03/21 20:30 BP 151/70 09/04/21 05:00 Pulse Ox 94 L 09/04/21 05:00 Intake & Output 09/03/21 09/04/21 09/04/21 18:59 06:59 18:59 Intake Total 1500 1240 Output Total 1600 600 650 Balance -100 640 -650 Intake: Intake, IV Titration 1500 1000 Amount Sodium Chloride 0.9% 1, 1500 1000 000 ml @ 75 mls/hr IV . [id number] [facility] Rx#:[id number] Oral 240 Output: Urine 1600 600 650 Uretheral (Fabian) 250 Other: Voiding Method Indwelling Catheter Indwelling Catheter Urinal # Bowel Movements 1 - Constitutional General appearance: Present: cooperative, no acute distress - Gastrointestinal Gastrointestinal Comment(s): Soft, nontender, nondistended, no rebound, no guarding, midline incision clean, dry and intact - Psychiatric Psychiatric: Present: A&O x's 3 - Labs CBC & Chem 7: 09/03/21 05:33 09/03/21 05:33 Labs: Microbiology - Last 24 Hours (Table) 09/02/21 21:03 Urine Culture - Final Urine,Voided Assessment and Plan Plan: Postoperative day #5, right hemicolectomy Continue with oral pain meds, weaned from IV Continue incentive spirometry The catheter removed this morning. Patient did finally have a urination on his own Patient has had multiple bowel movements. Nausea has resolved. Advance to soft diet Vitals were reviewed with patient having some tachycardia episodes. Patient states that when he returns to his bed for vital signs he is uncomfortable and believes that's why his heart rate elevates. At bedside, currently while patient is in the chair, pulse was checked and was noted to be at 82. Increase activity. This was discussed significantly with the patient to ambulate. Currently, patient is refusing to do so in the hallway. Decrease IV fluids Likely discharge in 24 hours if patient tolerates diet Appreciate medical recommendations
--- NOTE | 2021-09-04 13:25 | CDI ---
Documentation Clarification Form Date: 09/04/2021 01:00:27 PM From: Nicolette Hernandes RN CCDS Admit Date: 08/30/2021 11:53:00 AM Patient Name: Bernardino Mcgovern Visit Number: [id number] Discharge Date: ATTENTION: The Clinical Documentation Specialists (CDI) and [facility] Coding Staff appreciate your assistance in clarifying documentation. Please respond to the clarification below the line at the bottom and electronically sign. The CDI & [facility] Coding staff will review the response and follow-up if needed. Please note: Queries are made part of the Legal Health Record. If you have any questions, please contact the author of this message via ITS. Dr. Ely Kaur Urinary retention is documented 09/01 & 09/02, medicine progress notes and patient had Open right hemicolectomy, 08/30. Additional clarification is requested regarding the relationship, if any, that exists between the diagnosis and the procedure. Patients Admitting Diagnosis: Colon polypoid lesion, low grade dysplasia Post-Operative Diagnosis: Colon polypoid lesion, low grade dysplasia Procedure performed: Open right hemicolectomy History/Risk Factors:70-year-old male presents to [facility] for elective right hemicolectomy secondary to a large polyp/mass discovered in screening colonoscopy. Medical history: HTN. 08/31, Medicine consult. Clinical Indicators: 08/30 Villar catheter 09/01 to current Flomax 0.4mg PO HS 09/01 Villar catheter discontinued. Bladder scan 09/02 Straight catheterization 350ml 09/02 Villar catheter reinserted 09/04 Villar catheter d/c Treatment: 09/01 to current Flomax 0.4mg PO HS, 09/02 Insert villar catheter if retention. What relationship, if any, exists between the diagnosis of [insert dx] and the procedure: [ ] Urinary retention is a complication of surgical procedure [ ] Urinary retention is an expected outcome of the surgical procedure [ ] Urinary retention is related to patients co-morbid condition(s) of Epidural (Ropivacaine/Hydromorphone) medication & not a complication of the procedure [ ] Other please specify ____ [ x ] Unable to determine (Template Last Revised: November 2020) MICAELAD
--- NOTE | 2021-09-04 13:35 | P.PN ---
Subjective Progress Note Date: 09/04/21 This is a 70-year-old gentleman status post elective right hemicolectomy secondary to large polyp/mass discovered in screening colonoscopy a few months ago. 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 Tolerated procedure well. States no pain with epidural. Tolerating clear liquid diet with no nausea or vomiting. Passing flatus. He reports he quit smoking 6 weeks ago. Afebrile, WBC 13.7, hemoglobin 13.4, platelets 231. Electrolytes within normal limits, renal function stable. Maintaining O2 sats in the 90s on 3 L nasal cannula. Denies chest pain, palpitations or shortness of breath. 09/03/2021 patient reports had a rough weekend with nausea and vomiting which has subsided. tolerating full liquid diet. Pain controlled. Sodium within normal limits. Denies chest pain, palpitations or shortness of breath. Maintaining O2 sats in the 90s on room air .Afebrile, normal WBC. 09/04/2021 significant clinical improvement. Minimal ambulation. Denies ligh theadedness dizziness or focal deficits. Denies abdominal pain. Tolerating full liquid diet with no further nausea or emesis. Eager for diet advancement. Diflucan initiated for oral thrush. Positive bowel movements. Afebrile. Mild tachycardia. Denies chest pain, palpitations or shortness of breath. Objective - Vital Signs Vital signs: Vital Signs Temp 97.7 F 09/04/21 05:00 Pulse 116 H 09/04/21 05:00 Resp 16 09/03/21 20:30 BP 151/70 09/04/21 05:00 Pulse Ox 94 L 09/04/21 05:00 Intake & Output 09/03/21 09/04/21 09/04/21 18:59 06:59 18:59 Intake Total 1500 1240 Output Total 1600 600 650 Balance -100 640 -650 Intake: Intake, IV Titration 1500 1000 Amount Sodium Chloride 0.9% 1, 1500 1000 000 ml @ 75 mls/hr IV . [id number] [facility] Rx#:[id number] Oral 240 Output: Urine 1600 600 650 Uretheral (Fabian) 250 Other: Voiding Method Indwelling Catheter Indwelling Catheter Urinal # Bowel Movements 1 - Exam PHYSICAL EXAM: VITAL SIGNS: [As above GENERAL: Alert and oriented 3, sitting up in bed, no acute distress HEENT: Conjunctivae normal. eyes normal. Oral thrush. NECK: No JVD. No thyroid enlargement. No LNs CARDIOVASCULAR: S1, S2 regular. No murmur RESPIRATION: Breath sounds diminished in the bases. No rhonchi or crackles. ABDOMEN: Soft, status post surgery, No guarding. Positive Bowel sounds. LEGS: No edema. no swelling. NERVOUS SYSTEM: Cranial N 2-12 grossly normal.No focal deficits.Strength and sensation grossly intact. Skin: Warm and dry, no rash - Labs CBC & Chem 7: 09/03/21 05:33 09/03/21 05:33 Labs: Microbiology - Last 24 Hours (Table) 09/02/21 21:03 Urine Culture - Final Urine,Voided Assessment and Plan Assessment: Large polyp/mass at the hepatic flexure discovered on screening colonoscopy with concerns for dysplasia, status post open right hemicolectomy, reporting: Polypoid lesion, low grade dysplasia. Acute postop hypoxic respiratory failure, expected outcome Atelectasis Hypertension, history of Hyperlipidemia Former nicotine dependence, quit 6 weeks ago Plan: Continue current medication regime ,monitoring and symptomatic treatment. Recheck on heart rate reported at 82 .Diet advancement as per primary/surgery. Fabian to be discontinued, ensure patient able to spontaneously void/bladder scanned for post void residuals. Aggressive pulmonary, toileting with incentive spirometer reinforced as well as increasing ambulation as tolerated. Medically cleared for discharge. Follow-up with PCP, in 1 week. The impression and plan of care has been dictated as directed. : I performed a history and examination of this patient, discussed the same with the dictator. I agree with the dictator's note ,documented as a scribe. Any additional findings or plans will be noted.
[2021-09-04] MEDS ORDERED: ACETAMINOPHEN TAB 325 MG TAB PO PRN (14:09)
[2021-09-04] MEDS: TAMSULOSIN 0.4 MG CAP.ER.24H PO SCH (21:14)
[2021-09-04] MEDS: ATORVASTATIN 20 MG TAB PO SCH (21:15)
[2021-09-05] MEDS: HEPARIN SODIUM,PORCINE/PF 5,000 UNIT/0.5 ML SYRINGE SQ SCH ×2 (00:18→09:22)
[2021-09-05] MEDS: KETOROLAC 30 MG/ML 1 ML VIAL IVP SCH ×2 (03:52→09:22)
[2021-09-05 05:40] VITALS: BP 104/53; PULSE 82; RESP 16; TEMP 99.1
[2021-09-05] MEDS: SODIUM CHLORIDE 0.9% 1,000 ML IV SCH (06:10)
--- NOTE | 2021-09-05 09:02 | P.DS ---
Providers Date of admission: 08/30/21 11:53 Attending physician: Ely Kaur DO Consults: 08/30/21 16:11 Consult Physician Routine Consulting Provider: Enrico Marsh Reason/Comments: Med Mgmt, pt known to you Do you want consulting provider notified?: Yes Primary care physician: Enrico Marsh [facility] Course: 70-year-old male presented to the hospital for an elective colectomy secondary to dysplastic polyp of the right colon. Postprocedure, patient was sent to the medical surgical floor. During his admission, he did have episodes of nausea and emesis that did resolve. He also did undergo some urinary retention after sudden removal of the epidural catheter. Urinary retention resolved and patient is urinating on his own. His diet was advanced as tolerated. He is having bowel function. He is surgically stable for discharge. Procedures: Right hemicolectomy Patient Condition at Discharge: Stable Plan - Discharge Summary Discharge Rx Participant: No New Discharge Prescriptions: New HYDROcodone/APAP 5-325MG [[place] 5-325] 1 each PO Q6HR PRN #15 tab PRN Reason: Pain Continue Vit C/E/Zn/Coppr/Lutein/Zeaxan [Preservision Areds 2 Softgel] 1 each PO BID Ginkgo Biloba [place] Extract [Ginkgo Biloba] 60 mg PO DAILY Furosemide [Lasix] 20 mg PO DAILY Atorvastatin [Lipitor] 20 mg PO HS amLODIPine BESYLATE/BENAZEPRIL [amLODIPine BESYLATE/BENAZEPRIL 5-10 mg] 1 each PO DAILY Melatonin 10 mg PO HS Discharge Medication List Atorvastatin [Lipitor] 20 mg PO HS 05/30/21 [History] Furosemide [Lasix] 20 mg PO DAILY 05/30/21 [History] Vit C/E/Zn/Coppr/Lutein/Zeaxan [Preservision Areds 2 Softgel] 1 each PO BID 05/30/21 [History] amLODIPine BESYLATE/BENAZEPRIL [amLODIPine BESYLATE/BENAZEPRIL 5-10 mg] 1 each PO DAILY 05/30/21 [History] Ginkgo Biloba [place] Extract [Ginkgo Biloba] 60 mg PO DAILY 08/27/21 [History] Melatonin 10 mg PO HS 08/27/21 [History] HYDROcodone/APAP 5-325MG [[place] 5-325] 1 each PO Q6HR PRN #15 tab 09/05/21 [Rx] Follow up Appointment(s)/Referral(s): Enrico Marsh DO [Primary Care Provider] - 1 Week [facility], [NON-STAFF] - 1 Week Ely Kaur DO [Doctor of Osteopathic Medicine] - 2 Weeks Activity/Diet/Wound Care/Special Instructions: Take pain medication as necessary Okay to shower, do not scrub on incision Stay on soft foods, avoid red meats No lifting greater than 5lbs Discharge Disposition: HOME SELF-CARE
[2021-09-05] MEDS: FUROSEMIDE 20 MG TAB PO SCH (09:22)
[2021-09-05] MEDS: FLUCONAZOLE 150 MG TAB PO SCH (09:22)
[2021-09-05] MEDS: NYSTATIN 100,000 UNIT/ML SUSP 500,000 UNIT/5 ML CUP PO SCH (09:22)
[2021-09-05] MEDS: amLODIPine 5 MG TAB PO SCH (09:23)
[2021-09-05] MEDS: PANTOPRAZOLE 40 MG TABLET PO SCH (09:23)
[2021-09-05] MEDS: lisinopriL 10 MG TAB PO SCH (09:23)
--- NOTE | 2021-09-07 17:34 | P.PN ---
Subjective Progress Note Date: 09/05/21 This is a 70-year-old gentleman status post elective right hemicolectomy secondary to large polyp/mass discovered in screening colonoscopy a few months ago. 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 Tolerated procedure well. States no pain with epidural. Tolerating clear liquid diet with no nausea or vomiting. Passing flatus. He reports he quit smoking 6 weeks ago. Afebrile, WBC 13.7, hemoglobin 13.4, platelets 231. Electrolytes within normal limits, renal function stable. Maintaining O2 sats in the 90s on 3 L nasal cannula. Denies chest pain, palpitations or shortness of breath. 09/03/2021 patient reports had a rough weekend with nausea and vomiting which has subsided. tolerating full liquid diet. Pain controlled. Sodium within normal limits. Denies chest pain, palpitations or shortness of breath. Maintaining O2 sats in the 90s on room air .Afebrile, normal WBC. 09/04/2021 significant clinical improvement. Minimal ambulation. Denies ligh theadedness dizziness or focal deficits. Denies abdominal pain. Tolerating full liquid diet with no further nausea or emesis. Eager for diet advancement. Diflucan initiated for oral thrush. Positive bowel movements. Afebrile. Mild tachycardia. Denies chest pain, palpitations or shortness of breath. 09/05/2021 tolerated diet advancement. Denies nausea vomiting. Positive flatus, positive bowel movement. Urinary retention resolved, voiding spontaneously. Denies chest pain, palpitations or shortness of breath. His lightheadedness, dizziness or focal deficits. Objective - Vital Signs Vital signs: Vital Signs Temp 99.1 F 09/05/21 05:00 Pulse 82 09/05/21 05:00 Resp 16 09/05/21 05:00 BP 104/53 09/05/21 05:00 Pulse Ox 94 L 09/05/21 05:00 Intake & Output 09/04/21 09/05/21 09/05/21 18:59 06:59 18:59 Intake Total 900 590 Output Total 650 Balance 250 590 Intake: Intake, IV Titration 900 Amount Sodium Chloride 0.9% 1, 900 000 ml @ 75 mls/hr IV . [id number] [facility] Rx#:[id number] Oral 590 Output: Urine 650 Uretheral (Fabian) 250 Other: Voiding Method Urinal Toilet Urinal # Voids 3 - Exam PHYSICAL EXAM: VITAL SIGNS: [As above GENERAL: Alert and oriented 3, sitting up in bed, no acute distress HEENT: Conjunctivae normal. eyes normal. NECK: No JVD. No thyroid enlargement. No LNs CARDIOVASCULAR: S1, S2 regular. No murmur RESPIRATION: Breath sounds diminished in the bases. No rhonchi or crackles. ABDOMEN: Soft, status post surgery, No guarding. Positive Bowel sounds. LEGS: No edema. no swelling. NERVOUS SYSTEM: Cranial N 2-12 grossly normal.No focal deficits.Strength and sensation grossly intact. Skin: Warm and dry, no rash - Labs CBC & Chem 7: 09/03/21 05:33 09/03/21 05:33 Labs: Microbiology - Last 24 Hours (Table) 09/02/21 21:03 Urine Culture - Final Urine,Voided Assessment and Plan Assessment: Large polyp/mass at the hepatic flexure discovered on screening colonoscopy with concerns for dysplasia, status post open right hemicolectomy, reporting: Polypoid lesion, low grade dysplasia. Acute postop hypoxic respiratory failure, expected outcome Acute urinary retention post removal of epidural catheter, resolved, expected outcome. Atelectasis Hypertension, history of Hyperlipidemia Former nicotine dependence, quit 6 weeks ago Plan: Continue current medication regime ,monitoring and symptomatic treatment. Patient will continue on Flomax at discharge/e-scribed . Aggressive pulmonary toileting patient has been instructed to continue using his incentive spirometer as previously advised,at home. Medically cleared for discharge. Follow-up with PCP, in 1 week. The impression and plan of care has been dictated as directed. : I performed a history and examination of this patient, discussed the same with the dictator. I agree with the dictator's note ,documented as a scribe. Any additional findings or plans will be noted.
--- NOTE | 2021-09-10 09:09 | CDI ---
Documentation Clarification Form Date: 09/10/2021 07:49:00 AM From: Smita Roy Admit Date: 08/30/2021 11:53:00 AM Patient Name: Bernardino Mcgovern Visit Number: [id number] Discharge Date: 09/05/2021 11:50:00 AM ATTENTION: The Clinical Documentation Specialists (CDI) and [facility] Coding Staff appreciate your assistance in clarifying documentation. Please respond to the clarification below the line at the bottom and electronically sign. The CDI & [facility] Coding staff will review the response and follow-up if needed. Please note: Queries are made part of the Legal Health Record. If you have any questions, please contact the author of this message via ITS. Dr. 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 Tumor invades into mucosa. Coding guidelines do not allow coding professionals to code based on pathology results; therefore, clarification is requested. History/risk factors: dysplasia colonic polyp Clinical Indicators: Path report positive Treatment: Right hemicolectomy Please clarify if you agree with the pathology report diagnosis of [insert result/diagnosis]: [x ] Yes [ ] No [ ] Other (please specify) [ ] Unable to determine MTDD
== END 2021-09-05 11:50 | disposition home or self-care (01) | DRG 329 ==
LOC: 2ORMAIN 08-30 11:53 → 5NMEDONC 08-30 18:14
PROVIDERS: ADMIT Surgery; ATTEND Surgery
PROC: 0DBF0ZZ Excision of Right Large Intestine, Open Approach (ICD-10-PCS; principal; 2021-08-30 13:30)
PROC: 0DJD4ZZ Inspection of Lower Intestinal Tract, Percutaneous Endoscopic Approach (ICD-10-PCS; principal; 2021-08-30 13:30)
DX: C18.3 Malignant neoplasm of hepatic flexure (principal); J96.01 Acute respiratory failure with hypoxia; B37.0 Candidal stomatitis; J98.11 Atelectasis; K56.7 Ileus, unspecified; D72.829 Elevated white blood cell count, unspecified; E78.5 Hyperlipidemia, unspecified; H35.30 Unspecified macular degeneration; M19.90 Unspecified osteoarthritis, unspecified site; F40.240 Claustrophobia; I10 Essential (primary) hypertension; Z20.822 Contact with and (suspected) exposure to COVID-19; R33.9 Retention of urine, unspecified; K63.5 Polyp of colon; Z79.899 Other long term (current) drug therapy; Z80.0 Family history of malignant neoplasm of digestive organs; Z87.891 Personal history of nicotine dependence; T81.9XXA Unspecified complication of procedure, initial encounter; M21.70 Unequal limb length (acquired), unspecified site; Z79.891 Long term (current) use of opiate analgesic; S87.82XS Crushing injury of left lower leg, sequela; V29.9XXS Motorcycle rider (driver) (passenger) injured in unspecified traffic accident, sequela; Z90.89 Acquired absence of other organs; Z71.6 Tobacco abuse counseling; Z53.31 Laparoscopic surgical procedure converted to open procedure
CPT/HCPCS: 80048; 80053; 81001; 85025; 85610; 85730; 86850; 86900; 86901; 87086; 87635; 88309

== ENCOUNTER → 2021-08-27 | Outpatient (CLI) | payer MEDICARE, BC ==
[2021-08-27 15:05] LABS: Potassium 4.2 mmol/L (3.5-5.1)
[2021-08-27 16:14] LABS: Basophils % (A) 0 %; Eosinophils # (A) 0.1 k/uL (0-0.7); Eosinophils % (A) 1 %; HCT 43.1 % (39.0-53.0); HGB 15.3 gm/dL (13.0-17.5); Lymphocytes # (A) 2.1 k/uL (1.0-4.8); Lymphocytes % (A) 22 %; MCH 32.7 pg (25.0-35.0); MCHC 35.5 g/dL (31.0-37.0); MCV 92.1 fL (80.0-100.0); Mean Platelet Volume 7.6; Monocytes # (A) 0.5 k/uL (0-1.0); Monocytes % (A) 5 %; Neutrophils # (A) 6.7 k/uL (1.3-7.7); Neutrophils % (A) 70 %; Platelet Count 238 k/uL (150-450); RBC 4.68 m/uL (4.30-5.90); WBC 9.6 k/uL (3.8-10.6)
== END | disposition home or self-care (01) ==
LOC: LABPAT 13:04
PROVIDERS: ATTEND Anesthesiology
DX: Z01.812 Encounter for preprocedural laboratory examination (principal)
CPT/HCPCS: 36415; 80051; 85025; 93005